=== PATIENT | female | born 1985 | race Caucasian/White ===

== ENCOUNTER 2020-02-18 05:46 | Day surgery (SDC) | payer OTHER ==
[2020-02-17 11:12] VITALS: BMI 25.9
[2020-02-18] MEDS ORDERED: Bacitracin Zinc Ointment 30 gm TUBE ONE (06:24)
[2020-02-18] MEDS ORDERED: Sodium Chloride 0.9% 10 ML ONE (06:24)
[2020-02-18] MEDS ORDERED: Bupivacaine PF 0.5% 30 ML VIAL ONE (06:24)
[2020-02-18] MEDS ORDERED: Betamet Acet/Betamet Na Ph 30 MG/5 ML VIAL ONE (06:24)
[2020-02-18] MEDS ORDERED: Fentanyl 100 MCG/2 ML VIAL ONE (06:29)
[2020-02-18] MEDS ORDERED: Midazolam HCl 2 mg/2 ml Vial ONE (06:50)
[2020-02-18 06:51] LABS: BHCG - Serum Negative (NEGATIVE); Pregs Control Background? CLEAR/WHITE (CLR/WHITE); Pregs Control Bar Appear? YES (CONTROL BAR)
[2020-02-18] MEDS ORDERED: Ketorolac Tromethamine 30 MG/ML VIAL ONE (08:40)
[2020-02-18] MEDS ORDERED: PROPOFOL 200 MG/20 ML VIAL ONE (09:25)
[2020-02-18] MEDS ORDERED: Dexamethasone 20 MG/5 ML VIAL ONE (09:25)
[2020-02-18] MEDS ORDERED: Ondansetron PF 4 MG/2 ML Vial ONE (09:25)
[2020-02-18] MEDS ORDERED: Lidocaine 1% PF 5 ML VIAL ONE (09:25)
--- NOTE | 2020-02-18 10:27 | OP ---
DATE OF PROCEDURE: 02/18/2020 PREOPERATIVE DIAGNOSIS: Giant cell tumor of tendon sheath, left index finger. POSTOPERATIVE DIAGNOSIS: Giant cell tumor of tendon sheath, left index finger. PROCEDURES PERFORMED: 1. Neuroplasty of ulnar digital nerves. 2. Excision, benign mass, left index finger, 3.5 cm. SPECIMEN: 3.5 cm multilobulated mass with brown color mostly from the radial aspect of the flexor and extensor tendon sheaths. TOURNIQUET TIME: 17 minutes. ESTIMATED BLOOD LOSS: 10 mL. SPECIMEN SENT: Yes. DESCRIPTION OF PROCEDURE: After successful general endotracheal anesthesia, the limb was prepped and draped. We gave the patient initially 10 mL of 0.5% Marcaine before we exsanguinated the limb and made our incision. We waited 3 minutes and then outlined a John-type incision beginning just 1 cm proximal to the proximal interphalangeal joint crease, coursing across obliquely the middle phalanx and then extending approximately 1.5 cm distally. We carried this through skin and subcutaneous tissue and immediately the mass was seen underneath the skin. A neuroplasty had to be performed both radial and ulnar to separate the digital nerve as on the ulnar side the digital nerve was compressed dorsally and ulnarly, while on the radial side, it was compressed palmarly and radially. Once we had done a neuroplasty, then we slowly dissected with a combination of blunt and sharp dissection of the mass and it was very adherent to the tendon sheath on the radial distal one half of the flexor sheath and coursing actually dorsal to the neurovascular bundle. There were three lobules and each were removed. We irrigated the area. We released the tourniquet, obtained hemostasis, and the digit was pink, and the digital nerves were well preserved grossly. We then obtained hemostasis, placed 3 mL of Celestone in the wound, and then closed the incision with excellent circulation using interrupted 4-0 nylon in simple pattern. The patient got additional 5 mL of 0.5% Marcaine before the dressing was applied. Bulky dressing was applied with a lightly applied Coban, and the patient left the operating room without evidence of anesthetic or operative complication with a pink digit. Job ID: [id number]
== END 2020-02-18 09:50 | disposition home or self-care (01) ==
LOC: SDC 05:46
PROVIDERS: ATTEND Orthopaedic Surgery Hand Surgery
PROC: 0LB80ZZ Excision of Left Hand Tendon, Open Approach (ICD-10-PCS; principal; 2020-02-18)
PROC: 01N40ZZ Release Ulnar Nerve, Open Approach (ICD-10-PCS; principal; 2020-02-18)
DX: D48.1 Neoplasm of uncertain behavior of connective and other soft tissue (principal); F41.9 Anxiety disorder, unspecified; Z79.899 Other long term (current) drug therapy
CPT/HCPCS: 36415; 84703; 88307; J0690; J0702; J1100; J1885; J2250; J2405; J2704; J3010; J3490; S0020

== ENCOUNTER 2022-04-27 15:14 | Outpatient (CLI) | payer BC | END 2022-04-27 15:15 | disposition home or self-care (01) | LOC: BICMAMMO 15:14 | PROVIDERS: ATTEND Obstetrics & Gynecology | DX: N63.10 Unspecified lump in the right breast, unspecified quadrant (principal) | CPT/HCPCS: 77066; G0279 ==